=== PATIENT | male | born 2000 | race Hispanic/Latino ===

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

== ENCOUNTER 2021-02-23 23:23 | Emergency (ER) | payer SELFPAY ==
[2021-02-24 00:26] LABS: #Lymphocytes 2.6 thou/uL (1.20-3.40); #Neutrophils 4.7 thou/uL (1.40-6.50); %Basophils 0.5 % (0.0-1.0); %Lymphocytes 31.2 % (28.0-48.0); %Monocytes 11.7 % (0.0-4.0); %Neutrophils 56.6 % (31.0-61.0); Mean Corpuscular HGB CONC 33.7 g/dL (32.0-36.0); Mean Corpuscular Hemoglobin 29.9 pg (25.0-35.0); Mean Corpuscular Volume 88.7 fL (78.0-98.0); Mean Platelet Volume 7.3 fL (7.4-10.4); Platelet Count 192 thou/uL (130-400); RBC Distribution Width 11.5 % (11.5-14.5); Red Blood Cell (RBC) Count 5.03 mill/uL (4.00-5.20); White Blood Cell (WBC) Count 8.4 thou/uL (4.8-10.8)
[2021-02-24] MEDS ORDERED: Acetaminophen 500 MG TAB ONE (00:31)
[2021-02-24] MEDS ORDERED: Ondansetron PF 4 MG/2 ML Vial ONE (00:31)
[2021-02-24 00:45] LABS: ALT (SGPT) 19 U/L (8-55); AST (SGOT) 28 U/L (5-34); Albumin 3.9 g/dL (3.5-5.0); Alkaline Phosphatase 65 U/L (50-130); Anion Gap 15 mmol/L (10-20); BUN (Urea Nitrogen) 8 mg/dL (8.9-20.6); Bilirubin, Total 0.5 mg/dL (0.2-1.2); Calc. Creatinine Clearance 0 mL/min (70-130); Calcium 8.4 mg/dL (7.8-10.44); Carbon Dioxide 21 mmol/L (22-29); Chloride 105 mmol/L (98-107); Globulin 3.8 g/dL (2.4-3.5); Glucose 101 mg/dL (70-105); Potassium 3.8 mmol/L (3.5-5.1); Protein, Total 7.7 g/dL (6.0-8.3); Sodium 137 mmol/L (136-145)
[2021-02-24 03:00] LABS: SARS-CoV-2 NAA Rapid Test DETECTED (NotDetected)
== END 2021-02-24 03:20 | disposition home or self-care (01) ==
LOC: ERS 23:23
DX: U07.1 COVID-19 (principal); I10 Essential (primary) hypertension
CPT/HCPCS: 0240U; 36415; 71045; 80053; 83605; 85025; 87040; 87804; 96374; J2405

== ENCOUNTER 2021-07-01 | Emergency (ER) | payer SELFPAY | END 2021-07-01 20:50 | disposition home or self-care (01) ==

== ENCOUNTER 2022-11-17 15:11 | Inpatient (IN) | payer OTHER, MEDICAID ==
[~2022-11-17 15:11] MED LIST: Iopamidol-370 76% 500 ML 1 ML ONE
[2022-11-17 15:41] LABS: Hemoglobin 13.4 g/dL (14.0-18.0); Mean Corpuscular HGB CONC 33.5 g/dL (32.0-36.0); Mean Corpuscular Hemoglobin 30.6 pg (27.0-31.0); Mean Corpuscular Volume 91.6 fl (78.0-98.0); Mean Platelet Volume 8.2 fL (7.4-10.4); Platelet Count 289 10x3/uL (130-400); RBC Distribution Width 11.5 % (11.5-14.5); Red Blood Cell (RBC) Count 4.37 mill/uL (4.70-6.10); White Blood Cell (WBC) Count 38.6 10x3/uL (4.8-10.8)
[2022-11-17 15:59] LABS: INR-International Normal Ratio 1.3; PTT 29.1 sec (22.9-36.1); Prothrombin Time 16.8 sec (12.0-14.7)
[2022-11-17] MEDS ORDERED: TETANUS, DIPHTHERIA TOX,ADULT (TDVAX) 0.5 ML VIAL IM ONE (16:03)
[2022-11-17] MEDS ORDERED: Dextrose 5% in Water 1,000 ML IV PRN (16:03)
[2022-11-17] MEDS ORDERED: Ondansetron PF 4 MG/2 ML Vial IVP PRN (16:03)
[2022-11-17] MEDS ORDERED: Morphine 4 MG/ML VIAL SLOW IVP PRN (16:03)
[2022-11-17] MEDS ORDERED: Morphine 2 MG/ML VIAL SLOW IVP PRN (16:03)
[2022-11-17] MEDS ORDERED: Insulin Regular 300 UNITS/3 ML VIAL SC PRN (16:03)
[2022-11-17] MEDS ORDERED: Dextrose 50% Abboject 50 ML SYRINGE SLOW IVP PRN (16:03)
[2022-11-17 16:04] LABS: ALT (SGPT) 19 U/L (8-55); AST (SGOT) 31 U/L (5-34); Albumin 3.4 g/dL (3.5-5.0); Alcohol Less than 10 mg/dL (Less than 10); Alkaline Phosphatase 105 U/L (40-110); Anion Gap 9 mmol/L (10-20); BUN (Urea Nitrogen) 10 mg/dL (8.9-20.6); Band 35 % (5-11); Bilirubin, Total 0.5 mg/dL (0.2-1.2); Calc. Creatinine Clearance 0 mL/min (70-130); Calcium 7.9 mg/dL (7.8-10.44); Carbon Dioxide 24 mmol/L (22-29); Chloride 108 mmol/L (98-107); Estimated GFR 128; Globulin 2.6 g/dL (2.4-3.5); Glucose 285 mg/dL (70-105); Lipase 38 U/L (8-78); Lymphocytes 9 % (21-51); MDiff Complete? YES; Monocytes 8 % (0-10); Myelocyte 2 % (0-0); Neutrophil 44 % (42-75); Platelet Morphology Comment Appears Adequate; Potassium 3.1 mmol/L (3.5-5.1); RBC Morphology Normal; Reactive Lymphocytes 2 % (0-10); Sodium 138 mmol/L (136-145)
[2022-11-17 16:07] LABS: Actual Bicarbonate (HCO3v) 19 mEq/L (22-28); Analyzer IN Cardio ER; Base Excess -6.6 mEq/L (-2.0 to +3.0); Calcium, Ionized (venous) 1.07 mmol/L (1.16-1.32); Chloride (VBG) 105 mmol/L (98-106); Hemoglobin (Hb) 13.1 g/dL (13.2-17.3); Potassium (VBG) 3.28 mmol/L (3.70-5.30); Sodium 134.5 mmol/L (133-146); pH (venous) 7.33 (7.32-7.43)
[2022-11-17] MEDS ORDERED: Sodium Chloride 0.9% 1,000 ML IV SCH (16:15)
[2022-11-17] MEDS ORDERED: Fentanyl 100 MCG/2 ML VIAL ONE (16:31)
[2022-11-17] MEDS ORDERED: Midazolam HCl 2 mg/2 ml Vial ONE (16:37)
[2022-11-17] MEDS ORDERED: Vecuronium 10 MG VIAL ONE (16:37)
[2022-11-17 17:07] LABS: INR-International Normal Ratio 1.4; Prothrombin Time 18.2 sec (12.0-14.7)
[2022-11-17] MEDS: Sodium Chloride 0.9% 1,000 ML IV SCH ×2 (18:08→23:38)
[2022-11-17 18:35] VITALS: BMI 33.0
[2022-11-17] MEDS ORDERED: Levothyroxine Sodium 400 MCG in Sodium Chloride 0.9% 100 ML IVPB SCH (18:45)
[2022-11-17 19:16] LABS: SARS-CoV-2 NAA Rapid Test Not Detected (NotDetected)
[2022-11-17] MEDS: Famotidine/PF 20 mg/2ml Vial SLOW IVP SCH (21:12)
[2022-11-17 23:16] LABS: INR-International Normal Ratio 1.3; PTT 28.5 sec (22.9-36.1); Prothrombin Time 16.2 sec (12.0-14.7)
[2022-11-17 23:18] LABS: Hemoglobin 13.5 g/dL (14.0-18.0); Mean Corpuscular HGB CONC 33.5 g/dL (32.0-36.0); Mean Corpuscular Hemoglobin 30.4 pg (27.0-31.0); Mean Corpuscular Volume 90.9 fl (78.0-98.0); Mean Platelet Volume 7.9 fL (7.4-10.4); Platelet Count 254 10x3/uL (130-400); RBC Distribution Width 11.7 % (11.5-14.5); Red Blood Cell (RBC) Count 4.44 mill/uL (4.70-6.10); White Blood Cell (WBC) Count 22.9 10x3/uL (4.8-10.8)
[2022-11-17 23:22] LABS: Lactic Acid 3.3 mmol/L (0.5-2.2)
[2022-11-17 23:26] LABS: #Lymphocytes 1.6 thou/uL (1.20-3.40); #Monocytes 2.2 thou/uL (0.11-0.59); #Neutrophils 19.1 thou/uL (1.40-6.50); %Basophils 0.1 % (0.0-1.0); %Eosinophils 0.1 % (0.0-10.0); %Lymphocytes 7.1 % (21.0-51.0); %Monocytes 9.5 % (0.0-10.0); %Neutrophils 83.3 % (42.0-75.0); Band 30 % (5-11); Lymphocytes 10 % (21-51); MDiff Complete? YES; Monocytes 6 % (0-10); Neutrophil 54 % (42-75)
[2022-11-18 04:02] LABS: Hemoglobin 12.8 g/dL (14.0-18.0); Mean Corpuscular HGB CONC 34.2 g/dL (32.0-36.0); Mean Corpuscular Hemoglobin 31.3 pg (27.0-31.0); Mean Corpuscular Volume 91.7 fl (78.0-98.0); Mean Platelet Volume 8.3 fL (7.4-10.4); Platelet Count 219 10x3/uL (130-400); RBC Distribution Width 11.7 % (11.5-14.5); Red Blood Cell (RBC) Count 4.07 mill/uL (4.70-6.10); White Blood Cell (WBC) Count 19.9 10x3/uL (4.8-10.8)
[2022-11-18 04:12] LABS: INR-International Normal Ratio 1.4; Prothrombin Time 17.7 sec (12.0-14.7)
[2022-11-18 04:13] LABS: PTT 32.6 sec (22.9-36.1)
[2022-11-18 04:18] LABS: Lactic Acid 1.9 mmol/L (0.5-2.2)
[2022-11-18 04:21] LABS: Phosphorus 2.6 mg/dL (2.3-4.7)
[2022-11-18 04:23] LABS: Anion Gap 12 mmol/L (10-20); BUN (Urea Nitrogen) 6 mg/dL (8.9-20.6); Calc. Creatinine Clearance 245 mL/min (70-130); Calcium 8.6 mg/dL (7.8-10.44); Carbon Dioxide 21 mmol/L (22-29); Chloride 110 mmol/L (98-107); Estimated GFR 132; Glucose 158 mg/dL (70-105); Magnesium 1.4 mg/dL (1.6-2.6); Sodium 139 mmol/L (136-145)
[2022-11-18 04:32] LABS: Band 26 % (5-11); Lymphocytes 10 % (21-51); MDiff Complete? YES; Monocytes 10 % (0-10); Neutrophil 54 % (42-75)
[2022-11-18] MEDS: Sodium Chloride 0.9% 1,000 ML IV SCH ×3 (06:32→19:39)
[2022-11-18 07:43] LABS: Actual Bicarbonate (HCO3a) 20.9 mEq/L (22-28); Base Excess (BEa) -1.4 mEq/L (-2.0 to +3.0); CO2 Tension 28.4 mmHg (35.0-45.0); Calcium, Ionized (arterial) 1.15 mmol/L (1.12-1.30); Carboxyhemoglobin (COHb) 0.3 gm% (0.0-3.0); Hemoglobin (Hb) 12.9 g/dL (14.0-18.0); O2 Tension (PaO2), arterial 205.9 mmHg (80.0-100.0); Potassium - ABG Lab 3.86 mmol/L (3.70-5.30); pH, Arterial 7.49 (7.35-7.45)
[2022-11-18 07:47] LABS: Puncture Site RRA
[2022-11-18] MEDS ORDERED: Sodium Phosphate 30 MMOL in Sodium Chloride 0.9% 250 ML 250 ML IVPB SCH (08:00)
[2022-11-18] MEDS ORDERED: Magnesium Sulfate In Water 4 GM in Premix Bag 1 BAG IVPB SCH (08:00)
[2022-11-18] MEDS: Famotidine/PF 20 mg/2ml Vial SLOW IVP SCH ×2 (09:21→21:32)
[2022-11-18 18:48] VITALS: BP 172/93
[2022-11-19 00:11] LABS: Hemoglobin 10.8 g/dL (14.0-18.0); Mean Corpuscular Hemoglobin 31.4 pg (27.0-31.0); Mean Corpuscular Volume 92.3 fl (78.0-98.0); Mean Platelet Volume 7.9 fL (7.4-10.4); Platelet Count 190 10x3/uL (130-400); RBC Distribution Width 11.7 % (11.5-14.5); Red Blood Cell (RBC) Count 3.44 mill/uL (4.70-6.10); White Blood Cell (WBC) Count 21.1 10x3/uL (4.8-10.8)
[2022-11-19 00:19] LABS: INR-International Normal Ratio 1.5; Prothrombin Time 18.6 sec (12.0-14.7)
[2022-11-19 00:20] LABS: PTT 35.1 sec (22.9-36.1)
[2022-11-19 00:34] LABS: ALT (SGPT) 16 U/L (8-55); AST (SGOT) 49 U/L (5-34); Alkaline Phosphatase 77 U/L (40-110); Anion Gap 12 mmol/L (10-20); BUN (Urea Nitrogen) 7 mg/dL (8.9-20.6); Bilirubin, Total 0.7 mg/dL (0.2-1.2); Calc. Creatinine Clearance 251 mL/min (70-130); Calcium 8.4 mg/dL (7.8-10.44); Carbon Dioxide 21 mmol/L (22-29); Chloride 109 mmol/L (98-107); Estimated GFR 134; Globulin 2.7 g/dL (2.4-3.5); Glucose 150 mg/dL (70-105); Phosphorus 2.1 mg/dL (2.3-4.7); Potassium 3.9 mmol/L (3.5-5.1); Protein, Total 5.7 g/dL (6.0-8.3); Sodium 138 mmol/L (136-145)
[2022-11-19 00:35] LABS: Band 14 % (5-11); Hypochromia SLIGHT = 6-15 cells (100X) (0-5/hpf); Lymphocytes 2 % (21-51); MDiff Complete? YES; Monocytes 11 % (0-10); Neutrophil 73 % (42-75); Platelet Morphology Comment Appears Adequate
[2022-11-19] MEDS: Sodium Chloride 0.9% 1,000 ML IV SCH ×2 (00:45→08:24)
[2022-11-19 00:56] LABS: Actual Bicarbonate (HCO3a) 22.7 mEq/L (22-28); Base Excess (BEa) 0.4 mEq/L (-2.0 to +3.0); CO2 Tension 29.2 mmHg (35.0-45.0); Calcium, Ionized (arterial) 1.16 mmol/L (1.12-1.30); Carboxyhemoglobin (COHb) 0.3 gm% (0.0-3.0); Hemoglobin (Hb) 11.4 g/dL (14.0-18.0); O2 Tension (PaO2), arterial 69.2 mmHg (80.0-100.0); Potassium - ABG Lab 3.89 mmol/L (3.70-5.30); Puncture Site LBA; pH, Arterial 7.51 (7.35-7.45)
[2022-11-19 01:25] LABS: Bilirubin Negative (Negative); Blood, Urine Negative (Negative); Glucose, Urine (Dipstick) Negative (Negative); Ketone, Urine > or equal to 80 mg/dL (Negative); Leukocyte Negative (Negative); Nitrite Negative (Negative); Protein, Urine (Dipstick) Trace mg/dL (Neg-Trace)
[2022-11-19 01:27] LABS: Clarity Y (Clear)
[2022-11-19 03:47] LABS: #Lymphocytes 1.4 thou/uL (1.20-3.40); #Neutrophils 17.6 thou/uL (1.40-6.50); %Basophils 0.1 % (0.0-1.0); %Eosinophils 0.1 % (0.0-10.0); %Lymphocytes 6.5 % (21.0-51.0); %Monocytes 9.5 % (0.0-10.0); %Neutrophils 83.9 % (42.0-75.0); Hemoglobin 10.3 g/dL (14.0-18.0); Mean Corpuscular Hemoglobin 31.2 pg (27.0-31.0); Mean Corpuscular Volume 91.8 fl (78.0-98.0); Platelet Count 185 10x3/uL (130-400); RBC Distribution Width 11.6 % (11.5-14.5); Red Blood Cell (RBC) Count 3.32 mill/uL (4.70-6.10)
[2022-11-19 04:07] LABS: Anion Gap 11 mmol/L (10-20); BUN (Urea Nitrogen) 7 mg/dL (8.9-20.6); Calc. Creatinine Clearance 254 mL/min (70-130); Calcium 8.4 mg/dL (7.8-10.44); Carbon Dioxide 21 mmol/L (22-29); Chloride 109 mmol/L (98-107); Estimated GFR 134; Glucose 153 mg/dL (70-105); Phosphorus 1.9 mg/dL (2.3-4.7); Potassium 3.9 mmol/L (3.5-5.1); Sodium 137 mmol/L (136-145)
[2022-11-19 06:51] LABS: #Lymphocytes 1.2 thou/uL (1.20-3.40); #Monocytes 2.2 thou/uL (0.11-0.59); #Neutrophils 17.3 thou/uL (1.40-6.50); %Eosinophils 0.1 % (0.0-10.0); %Monocytes 10.5 % (0.0-10.0); %Neutrophils 83.4 % (42.0-75.0); Hemoglobin 10.1 g/dL (14.0-18.0); Mean Corpuscular HGB CONC 34.7 g/dL (32.0-36.0); Mean Corpuscular Hemoglobin 31.9 pg (27.0-31.0); Mean Corpuscular Volume 91.7 fl (78.0-98.0); Mean Platelet Volume 8.1 fL (7.4-10.4); Platelet Count 188 10x3/uL (130-400); RBC Distribution Width 11.5 % (11.5-14.5); Red Blood Cell (RBC) Count 3.18 mill/uL (4.70-6.10); White Blood Cell (WBC) Count 20.8 10x3/uL (4.8-10.8)
[2022-11-19 07:07] LABS: INR-International Normal Ratio 1.4; Prothrombin Time 18.1 sec (12.0-14.7)
[2022-11-19 07:08] LABS: PTT 32.8 sec (22.9-36.1)
[2022-11-19 07:15] LABS: ALT (SGPT) 15 U/L (8-55); AST (SGOT) 44 U/L (5-34); Alkaline Phosphatase 77 U/L (40-110); Anion Gap 10 mmol/L (10-20); BUN (Urea Nitrogen) 7 mg/dL (8.9-20.6); Bilirubin, Total 0.6 mg/dL (0.2-1.2); Calc. Creatinine Clearance 254 mL/min (70-130); Calcium 8.3 mg/dL (7.8-10.44); Carbon Dioxide 22 mmol/L (22-29); Chloride 108 mmol/L (98-107); Estimated GFR 134; Globulin 2.7 g/dL (2.4-3.5); Glucose 150 mg/dL (70-105); Magnesium 2.2 mg/dL (1.6-2.6); Phosphorus 1.8 mg/dL (2.3-4.7); Potassium 3.8 mmol/L (3.5-5.1); Protein, Total 5.7 g/dL (6.0-8.3); Sodium 136 mmol/L (136-145)
[2022-11-19] MEDS ORDERED: Potassium Phosphate 30 MMOL in Sodium Chloride 0.9% 250 ML 250 ML IVPB SCH (07:30)
[2022-11-19] MEDS: Famotidine/PF 20 mg/2ml Vial SLOW IVP SCH ×2 (09:21→20:37)
[2022-11-19 12:26] LABS: #Lymphocytes 1.3 thou/uL (1.20-3.40); #Monocytes 2.1 thou/uL (0.11-0.59); #Neutrophils 17.2 thou/uL (1.40-6.50); %Eosinophils 0.1 % (0.0-10.0); %Lymphocytes 6.5 % (21.0-51.0); %Monocytes 10.1 % (0.0-10.0); %Neutrophils 83.3 % (42.0-75.0); Hemoglobin 9.5 g/dL (14.0-18.0); Mean Corpuscular HGB CONC 34.1 g/dL (32.0-36.0); Mean Corpuscular Hemoglobin 31.2 pg (27.0-31.0); Mean Corpuscular Volume 91.6 fl (78.0-98.0); Mean Platelet Volume 8.4 fL (7.4-10.4); Platelet Count 189 10x3/uL (130-400); RBC Distribution Width 11.6 % (11.5-14.5); Red Blood Cell (RBC) Count 3.04 mill/uL (4.70-6.10); White Blood Cell (WBC) Count 20.7 10x3/uL (4.8-10.8)
[2022-11-19 12:38] LABS: INR-International Normal Ratio 1.4; Prothrombin Time 17.6 sec (12.0-14.7)
[2022-11-19 12:39] LABS: PTT 35.5 sec (22.9-36.1)
[2022-11-19 13:00] LABS: ALT (SGPT) 15 U/L (8-55); AST (SGOT) 39 U/L (5-34); Albumin 2.9 g/dL (3.5-5.0); Alkaline Phosphatase 79 U/L (40-110); Anion Gap 12 mmol/L (10-20); BUN (Urea Nitrogen) 7 mg/dL (8.9-20.6); Bilirubin, Total 0.6 mg/dL (0.2-1.2); Calc. Creatinine Clearance 270 mL/min (70-130); Calcium 8.2 mg/dL (7.8-10.44); Carbon Dioxide 21 mmol/L (22-29); Chloride 109 mmol/L (98-107); Estimated GFR 137; Globulin 2.7 g/dL (2.4-3.5); Glucose 147 mg/dL (70-105); Magnesium 2.2 mg/dL (1.6-2.6); Phosphorus 2.5 mg/dL (2.3-4.7); Protein, Total 5.6 g/dL (6.0-8.3); Sodium 138 mmol/L (136-145)
[2022-11-19] MEDS: Acetaminophen 325 MG TAB PO SCH ×2 (13:08→18:30)
[2022-11-19 13:58] LABS: Bilirubin Negative (Negative); Blood, Urine Negative (Negative); Clarity Clear (Clear); Glucose, Urine (Dipstick) Normal (Negative); Ketone, Urine 20 mg/dL (Negative); Leukocyte Negative Leu/uL (Negative); Nitrite Negative (Negative); Protein, Urine (Dipstick) Negative (Neg-Trace); Specific Gravity, Urine 1.014 (1.002-1.036); Urobilinogen Normal mg/dL (Less than 2); pH, Urine 6.5 (5.0-9.0)
[2022-11-19] MEDS ORDERED: Hydrocortisone Sod Succ/PF 500 mg/4 ml Vial SLOW IVP SCH (14:15)
[2022-11-19] MEDS ORDERED: Vasopressin 20 UNIT, Admixture Fee 1 EACH in Sodium Chloride 0.9% 50 ML IV SCH (14:15)
[2022-11-19 15:18] LABS: Actual Bicarbonate (HCO3a) 22.4 mEq/L (22-28); Base Excess (BEa) 0.2 mEq/L (-2.0 to +3.0); CO2 Tension 28.1 mmHg (35.0-45.0); Calcium, Ionized (arterial) 1.13 mmol/L (1.12-1.30); Carboxyhemoglobin (COHb) 0.2 gm% (0.0-3.0); Hemoglobin (Hb) 10.1 g/dL (14.0-18.0); O2 Tension (PaO2), arterial 473.3 mmHg (80.0-100.0); Potassium - ABG Lab 3.96 mmol/L (3.70-5.30); pH, Arterial 7.52 (7.35-7.45)
[2022-11-19] MEDS ORDERED: Lidocaine 1% (PF) 30 ML VIAL ONE (15:35)
[2022-11-19 16:06] LABS: ALV-art Gradient 204.575 mmHg (0-20); Puncture Site Arterial Line
[2022-11-19 18:28] LABS: #Lymphocytes 0.9 thou/uL (1.20-3.40); #Monocytes 1.3 thou/uL (0.11-0.59); #Neutrophils 15.1 thou/uL (1.40-6.50); %Basophils 0.1 % (0.0-1.0); %Eosinophils 0.1 % (0.0-10.0); %Lymphocytes 5.4 % (21.0-51.0); %Monocytes 7.4 % (0.0-10.0); Hemoglobin 9.2 g/dL (14.0-18.0); Mean Corpuscular HGB CONC 34.4 g/dL (32.0-36.0); Mean Corpuscular Hemoglobin 31.3 pg (27.0-31.0); Mean Corpuscular Volume 90.8 fl (78.0-98.0); Mean Platelet Volume 8.1 fL (7.4-10.4); Platelet Count 179 10x3/uL (130-400); RBC Distribution Width 11.5 % (11.5-14.5); Red Blood Cell (RBC) Count 2.96 mill/uL (4.70-6.10); White Blood Cell (WBC) Count 17.4 10x3/uL (4.8-10.8)
[2022-11-19] MEDS: Piperacillin/Tazobactam 3.375 GM in Sodium Chloride 0.9% 100 ML IVPB SCH (18:30)
[2022-11-19 18:41] LABS: INR-International Normal Ratio 1.4; PTT 36.1 sec (22.9-36.1); Prothrombin Time 17.5 sec (12.0-14.7)
[2022-11-19 18:52] LABS: Actual Bicarbonate (HCO3a) 24.2 mEq/L (22-28); Base Excess (BEa) 1.5 mEq/L (-2.0 to +3.0); CO2 Tension 31.3 mmHg (35.0-45.0); Calcium, Ionized (arterial) 1.12 mmol/L (1.12-1.30); Carboxyhemoglobin (COHb) 0.3 gm% (0.0-3.0); Hemoglobin (Hb) 9.8 g/dL (14.0-18.0); O2 Tension (PaO2), arterial 358.2 mmHg (80.0-100.0); Potassium - ABG Lab 3.79 mmol/L (3.70-5.30); pH, Arterial 7.51 (7.35-7.45)
[2022-11-19 18:55] LABS: ALV-art Gradient 315.675 mmHg (0-20); Puncture Site Arterial Line
[2022-11-19 18:59] LABS: ALT (SGPT) 14 U/L (8-55); AST (SGOT) 35 U/L (5-34); Albumin 2.9 g/dL (3.5-5.0); Alkaline Phosphatase 78 U/L (40-110); Anion Gap 12 mmol/L (10-20); BUN (Urea Nitrogen) 8 mg/dL (8.9-20.6); Bilirubin, Total 0.5 mg/dL (0.2-1.2); Calc. Creatinine Clearance 262 mL/min (70-130); Calcium 8.3 mg/dL (7.8-10.44); Carbon Dioxide 21 mmol/L (22-29); Chloride 110 mmol/L (98-107); Creatinine, Urine Less than 20.00 mg/dL (63-166); Estimated GFR 135; Globulin 2.8 g/dL (2.4-3.5); Glucose 153 mg/dL (70-105); Lipase 32 U/L (8-78); Magnesium 2.2 mg/dL (1.6-2.6); Phosphorus 2.4 mg/dL (2.3-4.7); Potassium 3.7 mmol/L (3.5-5.1); Protein, Total 5.7 g/dL (6.0-8.3); Sodium 139 mmol/L (136-145)
[2022-11-19 19:59] LABS: Hemoglobin A1c 5.5 % (4.0-6.0)
[2022-11-19] MEDS ORDERED: Fentanyl BOLUS 250 ML IVPB PRN (20:00)
[2022-11-19] MEDS: Fentanyl CADD 100 ML IV SCH (20:26)
[2022-11-19] MEDS: Hydrocortisone Sod Succ/PF 100 mg/2 ml Vial IVP SCH (21:17)
[2022-11-19 21:35] LABS: Bilirubin Negative (Negative); Blood, Urine Negative (Negative); Clarity Clear (Clear); Glucose, Urine (Dipstick) 30 mg/dL (Negative); Ketone, Urine 40 mg/dL (Negative); Leukocyte Negative Leu/uL (Negative); Nitrite Negative (Negative); Protein, Urine (Dipstick) 20 mg/dL (Neg-Trace); Specific Gravity, Urine 1.034 (1.002-1.036); Urobilinogen Normal mg/dL (Less than 2)
[2022-11-19 23:54] LABS: Base Excess (BEa) 0.8 mEq/L (-2.0 to +3.0); CO2 Tension 32.8 mmHg (35.0-45.0); Calcium, Ionized (arterial) 1.12 mmol/L (1.12-1.30); Carboxyhemoglobin (COHb) 0.3 gm% (0.0-3.0); Hemoglobin (Hb) 8.9 g/dL (14.0-18.0); O2 Tension (PaO2), arterial 410.9 mmHg (80.0-100.0); Potassium - ABG Lab 4.06 mmol/L (3.70-5.30); pH, Arterial 7.48 (7.35-7.45)
[2022-11-19 23:56] LABS: Puncture Site Arterial Line
[2022-11-20 00:18] LABS: #Basophils 0.1 thou/uL (0.0-0.2); #Monocytes 1.5 thou/uL (0.11-0.59); #Neutrophils 15.1 thou/uL (1.40-6.50); %Basophils 0.3 % (0.0-1.0); %Eosinophils 0.1 % (0.0-10.0); %Lymphocytes 5.6 % (21.0-51.0); %Monocytes 8.4 % (0.0-10.0); %Neutrophils 85.6 % (42.0-75.0); Hemoglobin 8.5 g/dL (14.0-18.0); Mean Corpuscular HGB CONC 35.1 g/dL (32.0-36.0); Mean Corpuscular Hemoglobin 32.4 pg (27.0-31.0); Mean Corpuscular Volume 92.4 fl (78.0-98.0); Mean Platelet Volume 8.2 fL (7.4-10.4); Platelet Count 175 10x3/uL (130-400); RBC Distribution Width 11.6 % (11.5-14.5); Red Blood Cell (RBC) Count 2.61 mill/uL (4.70-6.10); White Blood Cell (WBC) Count 17.6 10x3/uL (4.8-10.8)
[2022-11-20 00:31] LABS: Bilirubin, Direct 0.2 mg/dL (0.1-0.3); Phosphorus 2.7 mg/dL (2.3-4.7)
[2022-11-20 00:35] LABS: Troponin I 0.136 ng/mL (< 0.028)
[2022-11-20 00:42] LABS: ALT (SGPT) 14 U/L (8-55); AST (SGOT) 31 U/L (5-34); Albumin 2.8 g/dL (3.5-5.0); Alkaline Phosphatase 71 U/L (40-110); Anion Gap 9 mmol/L (10-20); BUN (Urea Nitrogen) 10 mg/dL (8.9-20.6); Bilirubin, Total 0.5 mg/dL (0.2-1.2); CK (CPK) 398 U/L (30-200); Calc. Creatinine Clearance 287 mL/min (70-130); Calcium 8.1 mg/dL (7.8-10.44); Carbon Dioxide 23 mmol/L (22-29); Chloride 111 mmol/L (98-107); Creatinine, Urine Less than 20.00 mg/dL (63-166); Estimated GFR 139; Globulin 2.7 g/dL (2.4-3.5); Glucose 144 mg/dL (70-105); Lipase 31 U/L (8-78); Magnesium 2.3 mg/dL (1.6-2.6); Potassium 4.1 mmol/L (3.5-5.1); Protein, Total 5.5 g/dL (6.0-8.3); Sodium 139 mmol/L (136-145)
[2022-11-20] MEDS: Piperacillin/Tazobactam 3.375 GM in Sodium Chloride 0.9% 100 ML IVPB SCH ×4 (01:03→17:35)
[2022-11-20] MEDS: Acetaminophen 325 MG TAB PO SCH ×4 (01:03→17:35)
[2022-11-20] MEDS: Hydrocortisone Sod Succ/PF 100 mg/2 ml Vial IVP SCH ×3 (06:16→21:02)
[2022-11-20 06:36] LABS: Base Excess (BEa) -0.5 mEq/L (-2.0 to +3.0); CO2 Tension 32.6 mmHg (35.0-45.0); Calcium, Ionized (arterial) 1.14 mmol/L (1.12-1.30); Carboxyhemoglobin (COHb) 0.3 gm% (0.0-3.0); Hemoglobin (Hb) 8.3 g/dL (14.0-18.0); O2 Tension (PaO2), arterial 406.9 mmHg (80.0-100.0); Potassium - ABG Lab 4.02 mmol/L (3.70-5.30); pH, Arterial 7.47 (7.35-7.45)
[2022-11-20 06:39] LABS: Puncture Site Arterial Line
[2022-11-20] MEDS: Sodium Chloride 0.9% 1,000 ML IV SCH ×3 (07:00→17:49)
[2022-11-20 07:07] LABS: #Lymphocytes 1.5 thou/uL (1.20-3.40); #Monocytes 1.8 thou/uL (0.11-0.59); #Neutrophils 12.4 thou/uL (1.40-6.50); %Eosinophils 0.2 % (0.0-10.0); %Lymphocytes 9.4 % (21.0-51.0); %Monocytes 11.5 % (0.0-10.0); %Neutrophils 78.9 % (42.0-75.0); Hemoglobin 7.9 g/dL (14.0-18.0); Mean Corpuscular HGB CONC 34.3 g/dL (32.0-36.0); Mean Corpuscular Hemoglobin 31.8 pg (27.0-31.0); Mean Corpuscular Volume 92.8 fl (78.0-98.0); Mean Platelet Volume 8.3 fL (7.4-10.4); Platelet Count 187 10x3/uL (130-400); RBC Distribution Width 11.6 % (11.5-14.5); Red Blood Cell (RBC) Count 2.47 mill/uL (4.70-6.10); White Blood Cell (WBC) Count 15.7 10x3/uL (4.8-10.8)
[2022-11-20 07:17] LABS: INR-International Normal Ratio 1.3; Prothrombin Time 16.5 sec (12.0-14.7)
[2022-11-20 07:18] LABS: PTT 30.8 sec (22.9-36.1)
[2022-11-20 07:27] LABS: Bilirubin, Direct 0.2 mg/dL (0.1-0.3); Phosphorus 3.1 mg/dL (2.3-4.7)
[2022-11-20 07:29] LABS: Troponin I 0.114 ng/mL (< 0.028)
[2022-11-20 07:35] LABS: ALT (SGPT) 9 U/L (8-55); AST (SGOT) 25 U/L (5-34); Albumin 2.7 g/dL (3.5-5.0); Alkaline Phosphatase 62 U/L (40-110); Anion Gap 9 mmol/L (10-20); BUN (Urea Nitrogen) 12 mg/dL (8.9-20.6); Bilirubin, Total 0.5 mg/dL (0.2-1.2); CK (CPK) 284 U/L (30-200); Calc. Creatinine Clearance 267 mL/min (70-130); Carbon Dioxide 25 mmol/L (22-29); Chloride 111 mmol/L (98-107); Creatinine, Urine Less than 20.00 mg/dL (63-166); Estimated GFR 136; Globulin 2.5 g/dL (2.4-3.5); Glucose 128 mg/dL (70-105); Lipase 55 U/L (8-78); Magnesium 2.3 mg/dL (1.6-2.6); Potassium 4.2 mmol/L (3.5-5.1); Protein, Total 5.2 g/dL (6.0-8.3); Sodium 141 mmol/L (136-145)
[2022-11-20] MEDS: Famotidine/PF 20 mg/2ml Vial SLOW IVP SCH ×2 (08:13→21:01)
[2022-11-20] MEDS ORDERED: FLU VACC QS2022-23(6MOS UP)/PF 60 MCG/0.5 ML SYRINGE IM ONE (09:00)
[2022-11-20 10:53] LABS: Bilirubin Negative (Negative); Blood, Urine Negative (Negative); Clarity Clear (Clear); Glucose, Urine (Dipstick) Normal (Negative); Ketone, Urine Negative (Negative); Leukocyte Negative Leu/uL (Negative); Nitrite Negative (Negative); Protein, Urine (Dipstick) Negative (Neg-Trace); Urobilinogen Normal mg/dL (Less than 2)
[2022-11-20 13:37] LABS: Actual Bicarbonate (HCO3a) 26.3 mEq/L (22-28); Base Excess (BEa) 2.8 mEq/L (-2.0 to +3.0); CO2 Tension 35.4 mmHg (35.0-45.0); Carboxyhemoglobin (COHb) 0.3 gm% (0.0-3.0); Hemoglobin (Hb) 7.8 g/dL (14.0-18.0); O2 Tension (PaO2), arterial 407.7 mmHg (80.0-100.0); pH, Arterial 7.49 (7.35-7.45)
[2022-11-20 13:38] LABS: Puncture Site Arterial Line
[2022-11-20] MEDS ORDERED: Fentanyl CADD 100 ML ONE (16:04)
[2022-11-20] MEDS: Fentanyl CADD 100 ML IV SCH (16:07)
[2022-11-20] MEDS ORDERED: Calcium Chloride 1 GM/10 ML Abboject SYRINGE IVP SCH (17:00)
[2022-11-20 17:36] VITALS: TEMP 101.3
[2022-11-20 18:39] LABS: Actual Bicarbonate (HCO3a) 25.6 mEq/L (22-28); Base Excess (BEa) 2.5 mEq/L (-2.0 to +3.0); Carboxyhemoglobin (COHb) 0.5 gm% (0.0-3.0); Hemoglobin (Hb) 7.6 g/dL (14.0-18.0); O2 Tension (PaO2), arterial 336.5 mmHg (80.0-100.0); Potassium - ABG Lab 3.92 mmol/L (3.70-5.30); pH, Arterial 7.51 (7.35-7.45)
[2022-11-20 18:41] LABS: Puncture Site Arterial Line
[2022-11-20 19:34] LABS: #Lymphocytes 1.5 thou/uL (1.20-3.40); #Monocytes 1.2 thou/uL (0.11-0.59); #Neutrophils 10.3 thou/uL (1.40-6.50); %Basophils 0.1 % (0.0-1.0); %Eosinophils 0.2 % (0.0-10.0); %Lymphocytes 11.3 % (21.0-51.0); %Monocytes 9.2 % (0.0-10.0); %Neutrophils 79.2 % (42.0-75.0); Hemoglobin 7.3 g/dL (14.0-18.0); Mean Corpuscular HGB CONC 33.6 g/dL (32.0-36.0); Mean Corpuscular Hemoglobin 30.9 pg (27.0-31.0); Mean Corpuscular Volume 91.9 fl (78.0-98.0); Mean Platelet Volume 8.2 fL (7.4-10.4); Platelet Count 193 10x3/uL (130-400); RBC Distribution Width 11.4 % (11.5-14.5); Red Blood Cell (RBC) Count 2.35 mill/uL (4.70-6.10)
[2022-11-20 19:42] LABS: INR-International Normal Ratio 1.3; Prothrombin Time 17.2 sec (12.0-14.7)
[2022-11-20 19:43] LABS: PTT 31.8 sec (22.9-36.1)
[2022-11-20 19:56] LABS: Troponin I 0.073 ng/mL (< 0.028)
[2022-11-20 20:06] LABS: ALT (SGPT) 7 U/L (8-55); AST (SGOT) 21 U/L (5-34); Albumin 2.8 g/dL (3.5-5.0); Alkaline Phosphatase 60 U/L (40-110); Anion Gap 11 mmol/L (10-20); BUN (Urea Nitrogen) 13 mg/dL (8.9-20.6); Bilirubin, Direct 0.3 mg/dL (0.1-0.3); Bilirubin, Total 0.5 mg/dL (0.2-1.2); CK (CPK) 248 U/L (30-200); Calc. Creatinine Clearance 252 mL/min (70-130); Calcium 7.9 mg/dL (7.8-10.44); Carbon Dioxide 25 mmol/L (22-29); Chloride 112 mmol/L (98-107); Estimated GFR 134; Globulin 2.5 g/dL (2.4-3.5); Glucose 135 mg/dL (70-105); Magnesium 2.4 mg/dL (1.6-2.6); Phosphorus 3.1 mg/dL (2.3-4.7); Potassium 3.9 mmol/L (3.5-5.1); Protein, Total 5.3 g/dL (6.0-8.3); Sodium 144 mmol/L (136-145)
[2022-11-21 00:20] LABS: CO2 Tension 34.8 mmHg (35.0-45.0); Calcium, Ionized (arterial) 1.11 mmol/L (1.12-1.30); Carboxyhemoglobin (COHb) 0.3 gm% (0.0-3.0); Hemoglobin (Hb) 7.9 g/dL (14.0-18.0); O2 Tension (PaO2), arterial 385.7 mmHg (80.0-100.0); Potassium - ABG Lab 3.85 mmol/L (3.70-5.30); pH, Arterial 7.52 (7.35-7.45)
[2022-11-21 00:21] LABS: Puncture Site Arterial Line
[2022-11-21] MEDS: Acetaminophen 325 MG TAB PO SCH ×3 (01:10→14:47)
[2022-11-21] MEDS: Piperacillin/Tazobactam 3.375 GM in Sodium Chloride 0.9% 100 ML IVPB SCH ×3 (01:13→14:51)
[2022-11-21] MEDS ORDERED: Heparin 30,000 units/30 ml VIAL SLOW IVP SCH (04:30)
[2022-11-21 05:46] LABS: Bacteria/HPF None Seen HPF (None Seen); Bilirubin Negative (Negative); Blood, Urine Negative (Negative); CAUTI Indications for Culture Urological Procedure; Clarity Turbid (Clear); Glucose, Urine (Dipstick) Normal (Negative); Ketone, Urine Negative (Negative); Leukocyte Negative Leu/uL (Negative); Nitrite Negative (Negative); Protein, Urine (Dipstick) 10 mg/dL (Neg-Trace); RBC/HPF 0-3 HPF (0-3); Specific Gravity, Urine 1.029 (1.002-1.036); Squamous Epithelial None Seen HPF (0-3); WBC/HPF 0-3 HPF (0-3)
[2022-11-21 05:49] LABS: Urine Culture Reflex Yes Yes
[2022-11-21] MEDS: Hydrocortisone Sod Succ/PF 100 mg/2 ml Vial IVP SCH ×2 (06:28→15:10)
[2022-11-21] MEDS: Sodium Chloride 0.9% 1,000 ML IV SCH (06:50)
[2022-11-21 07:03] LABS: Actual Bicarbonate (HCO3a) 26.3 mEq/L (22-28); Base Excess (BEa) 3.1 mEq/L (-2.0 to +3.0); CO2 Tension 33.9 mmHg (35.0-45.0); Carboxyhemoglobin (COHb) 0.3 gm% (0.0-3.0); Hemoglobin (Hb) 7.7 g/dL (14.0-18.0); O2 Tension (PaO2), arterial 376.6 mmHg (80.0-100.0); Potassium - ABG Lab 3.85 mmol/L (3.70-5.30); pH, Arterial 7.51 (7.35-7.45)
[2022-11-21 07:05] LABS: ALV-art Gradient 294.025 mmHg (0-20); Puncture Site Arterial Line
[2022-11-21 09:04] LABS: #Eosinphils 0.1 thou/uL (0.0-0.7); #Lymphocytes 1.4 thou/uL (1.20-3.40); #Monocytes 1.1 thou/uL (0.11-0.59); #Neutrophils 9.1 thou/uL (1.40-6.50); %Basophils 0.2 % (0.0-1.0); %Eosinophils 0.5 % (0.0-10.0); %Lymphocytes 11.8 % (21.0-51.0); %Monocytes 9.6 % (0.0-10.0); Hemoglobin 7.7 g/dL (14.0-18.0); Mean Corpuscular HGB CONC 34.4 g/dL (32.0-36.0); Mean Platelet Volume 7.9 fL (7.4-10.4); Platelet Count 209 10x3/uL (130-400); RBC Distribution Width 11.5 % (11.5-14.5); Red Blood Cell (RBC) Count 2.41 mill/uL (4.70-6.10); White Blood Cell (WBC) Count 11.7 10x3/uL (4.8-10.8)
[2022-11-21 09:16] LABS: Troponin I 0.046 ng/mL (< 0.028)
[2022-11-21 09:39] LABS: ALT (SGPT) 11 U/L (8-55); AST (SGOT) 22 U/L (5-34); Albumin 2.9 g/dL (3.5-5.0); Alkaline Phosphatase 64 U/L (40-110); Anion Gap 12 mmol/L (10-20); BUN (Urea Nitrogen) 14 mg/dL (8.9-20.6); Bilirubin, Direct 0.6 mg/dL (0.1-0.3); Bilirubin, Total 0.9 mg/dL (0.2-1.2); CK (CPK) 317 U/L (30-200); Calc. Creatinine Clearance 0 mL/min (70-130); Calcium 8.1 mg/dL (7.8-10.44); Carbon Dioxide 25 mmol/L (22-29); Chloride 113 mmol/L (98-107); Estimated GFR 133; Globulin 2.8 g/dL (2.4-3.5); Glucose 132 mg/dL (70-105); Magnesium 2.5 mg/dL (1.6-2.6); Phosphorus 2.9 mg/dL (2.3-4.7); Potassium 3.7 mmol/L (3.5-5.1); Protein, Total 5.7 g/dL (6.0-8.3); Sodium 146 mmol/L (136-145)
[2022-11-21] MEDS: Famotidine/PF 20 mg/2ml Vial SLOW IVP SCH (10:07)
[2022-11-21] MEDS ORDERED: Morphine 4 MG/ML VIAL SLOW IVP SCH (10:30)
[2022-11-21] MEDS ORDERED: Midazolam HCl 2 mg/2 ml Vial SLOW IVP SCH (10:30)
[2022-11-21] MEDS ORDERED: Heparin 10,000 UNITS/ 10 ML VIAL SLOW IVP SCH (11:15)
[2022-11-21] MEDS: Morphine 4 MG/ML VIAL SLOW IVP PRN ×5 (11:57→13:30)
[2022-11-21] MEDS ORDERED: Bupivacaine HCl 0.5%/Epinephrine 1:200,000/PF 30 ml Vial ONE (12:10)
[2022-11-21] MEDS ORDERED: Lidocaine 1% MPF 2 ML VIAL ONE (12:10)
[2022-11-21] MEDS: Midazolam HCl 2 mg/2 ml Vial SLOW IVP PRN ×3 (13:00→13:30)
[2022-11-21 15:10] LABS: ALT (SGPT) 71 U/L (8-55); AST (SGOT) 75 U/L (5-34); Albumin 3.3 g/dL (3.5-5.0); Alkaline Phosphatase 89 U/L (40-110); Anion Gap 26 mmol/L (10-20); BUN (Urea Nitrogen) 17 mg/dL (8.9-20.6); Bilirubin, Total 1.3 mg/dL (0.2-1.2); Calc. Creatinine Clearance 0 mL/min (70-130); Calcium 8.5 mg/dL (7.8-10.44); Carbon Dioxide 15 mmol/L (22-29); Chloride 109 mmol/L (98-107); Estimated GFR 98; Globulin 3.2 g/dL (2.4-3.5); Glucose 246 mg/dL (70-105); Potassium 4.8 mmol/L (3.5-5.1); Protein, Total 6.5 g/dL (6.0-8.3); Sodium 145 mmol/L (136-145)
== END 2022-11-21 13:43 | disposition expired | DRG 957 ==
LOC: EEVIPCON 15:11 → ERS 15:11 → CCU 16:48 → EEVIPCON 16:48
PROVIDERS: ADMIT Surgery; ATTEND Surgery
PROC: 0WCQ8ZZ Extirpation of Matter from Respiratory Tract, Via Natural or Artificial Opening Endoscopic (ICD-10-PCS; 2022-11-17)
PROC: 0DH67UZ Insertion of Feeding Device into Stomach, Via Natural or Artificial Opening (ICD-10-PCS; 2022-11-17)
PROC: 02H633Z Insertion of Infusion Device into Right Atrium, Percutaneous Approach (ICD-10-PCS; 2022-11-17)
PROC: 0BH17EZ Insertion of Endotracheal Airway into Trachea, Via Natural or Artificial Opening (ICD-10-PCS; 2022-11-17)
PROC: 5A1945Z Respiratory Ventilation, 24-96 Consecutive Hours (ICD-10-PCS; 2022-11-17)
PROC: 0W9930Z Drainage of Right Pleural Cavity with Drainage Device, Percutaneous Approach (ICD-10-PCS; 2022-11-17)
PROC: 0B9D8ZX Drainage of Right Middle Lung Lobe, Via Natural or Artificial Opening Endoscopic, Diagnostic (ICD-10-PCS; principal; 2022-11-19)
PROC: 0WCQ8ZZ Extirpation of Matter from Respiratory Tract, Via Natural or Artificial Opening Endoscopic (ICD-10-PCS; 2022-11-19)
PROC: 0B9J8ZX Drainage of Left Lower Lung Lobe, Via Natural or Artificial Opening Endoscopic, Diagnostic (ICD-10-PCS; 2022-11-19)
PROC: 03HY32Z Insertion of Monitoring Device into Upper Artery, Percutaneous Approach (ICD-10-PCS; 2022-11-19)
PROC: 4A133B1 Monitoring of Arterial Pressure, Peripheral, Percutaneous Approach (ICD-10-PCS; 2022-11-19)
PROC: 4A133J1 Monitoring of Arterial Pulse, Peripheral, Percutaneous Approach (ICD-10-PCS; 2022-11-19)
PROC: 30233N1 Transfusion of Nonautologous Red Blood Cells into Peripheral Vein, Percutaneous Approach (ICD-10-PCS; 2022-11-21)
DX: J69.0 Pneumonitis due to inhalation of food and vomit; S27.1XXA Traumatic hemothorax, initial encounter; J96.00 Acute respiratory failure, unspecified whether with hypoxia or hypercapnia; S06.A1XA Traumatic brain compression with herniation, initial encounter; E87.21 Acute metabolic acidosis; E87.3 Alkalosis; S27.321A Contusion of lung, unilateral, initial encounter; R40.20 Unspecified coma; S02.0XXA Fracture of vault of skull, initial encounter for closed fracture; Z51.5 Encounter for palliative care; S01.93XA Puncture wound without foreign body of unspecified part of head, initial encounter; E83.51 Hypocalcemia; R73.9 Hyperglycemia, unspecified; R40.2432 Glasgow coma scale score 3-8, at arrival to emergency department; E83.39 Other disorders of phosphorus metabolism; Z20.822 Contact with and (suspected) exposure to COVID-19; S41.102A Unspecified open wound of left upper arm, initial encounter; I10 Essential (primary) hypertension; S51.801A Unspecified open wound of right forearm, initial encounter; S41.101A Unspecified open wound of right upper arm, initial encounter; V49.9XXA Car occupant (driver) (passenger) injured in unspecified traffic accident, initial encounter
CPT/HCPCS: 36415; 36416; 36430; 36600; 70450; 70486; 71045; 71250; 71260; 72125; 74177; 80048; 80053; 80307; 81001; 81003; 82150; 82248; 82550; 82805; 83036; 83605; 83690; 83735; 83930; 84100; 84484; 85025; 85384; 85610; 85730; 86850; 86900; 86901; 87070; 87086; 93005; 93010; 93306; 94002; 94003; 94640; G0390; J1644; J1720; J2250; J2270; J2543; J3010; J3475; J3490; J7050; J7620; P9016; Q9967; S0028; U0002